=== PATIENT | male | born 1955 | race American Indian/Alaskan Native ===

== ENCOUNTER 2017-05-09 04:57 | Emergency (ER) | payer OTHER ==
[2017-05-09] MEDS ORDERED: ZOFRAN IV ONE ×2 (05:32→11:16)
[2017-05-09] MEDS ORDERED: TORADOL IV ONE (05:32)
--- NOTE | 2017-05-09 06:26 | Cat Scan Report ---
FINAL REPORT EXAM: CT ABDOMEN PELVIS WO CON HISTORY: R flank pain h/o renal stones TECHNIQUE: Routine axial imaging was obtained of the abdomen and pelvis without oral or IV contrast. Sagittal and coronal reconstructions were reviewed. The previous study of 01/21/2016 was reviewed for correlation. FINDINGS: The lung bases are clear. There is a small hiatal hernia. The liver, gallbladder, pancreas, spleen, and adrenal glands appear normal. The kidneys reveal moderate right-sided hydronephrosis secondary to a partially obstructing 5.5 mm stone in the mid right ureter. Both kidneys otherwise reveal additional nonobstructing stones measure up to 3 millimeters in diameter in the left kidney. There is perinephric stranding noted bilaterally. The bowel loops are normal in caliber and course. The appendix is not enlarged. There is no evidence of free fluid or adenopathy. In the pelvis the prostate gland is moderately enlarged indenting the floor of the bladder. The bladder otherwise is well maintained. The skeletal structures reveal extensive facet arthropathy changes in the lower lumbar spine. IMPRESSION: Moderate right-sided hydronephrosis secondary to a partially obstructing 5.5 mm stone in the mid right ureter. Additional nonobstructing stones in both kidneys with bilateral perinephric stranding. Prostatic enlargement. Normal appendix. Extensive facet arthropathy changes lower lumbar spine
--- NOTE | 2017-05-09 10:59 | Emergency Department Report ---
Chief Complaint: Abdominal Pain Stated Complaint: RT FLANK PAIN - HPI History of Present Illness: 61-year-old presents with recurrent renal colic. First episode of renal colic or 2 years ago required surgical intervention by urologist Dr. Hoffman. - Exam Vital Signs: Vital Signs 05/09/17 05/09/17 05:27 05:46 Temperature 98 F Pulse Rate 80 Respiratory 18 18 Rate Blood Pressure 134/83 O2 Sat by Pulse 96 Oximetry MSE screening note: Focused history and physical exam performed. Due to findings the following was ordered: ED Disposition for MSE Condition: Stable Referrals: JI CROCKETT MD [Primary Care Provider] - 3-5 Days
--- NOTE | 2017-05-09 11:10 | Emergency Department Report ---
ED Abdominal Pain HPI - General Chief Complaint: Abdominal Pain Stated Complaint: RT FLANK PAIN Time Seen by Provider: 05/09/17 11:01 Source: patient Mode of arrival: Ambulatory Limitations: No Limitations - History of Present Illness Severity scale (0 -10): 10 - Related Data Home Medications Medication Instructions Recorded Confirmed Last Taken Doxazosin [Cardura] 1 mg PO QDAY 12/30/12 01/26/16 01/25/16 Linagliptin [Tradjenta] 5 mg PO QAM 12/30/12 01/26/16 01/25/16 amLODIPine/VALSARTAN [Exforge 1 each PO DAILY 12/30/12 01/26/16 01/26/16 10:30 10-160 mg Tablet] l-Mefol/A-Cyst/Meb12/Algal Oil 1 each PO QDAY 12/30/12 01/26/16 01/25/16 [Cerefolin Nac Caplet] Finasteride 1 tab PO DAILY 01/21/16 01/26/16 01/25/16 [place]-3 Fatty Acids/Fish Oil [Fish 1 each PO QDAY 01/21/16 01/26/16 01/25/16 Oil] Testosterone Cypionate 400 mg IM Q4W 01/21/16 01/26/16 01/25/16 [Depo-Testosterone] Testosterone [Androgel] 40.5 mg TRANSDERMA QDAY 01/21/16 01/26/16 01/25/16 Arginine [l-Arginine] 500 mg PO QDAY 01/26/16 01/26/16 01/25/16 Allergies Allergy/AdvReac Type Severity Reaction Status Date / Time IVP DYE AdvReac Unknown Uncoded 12/15/14 09:24 ED Review of Systems ROS: Stated complaint: RT FLANK PAIN Other details as noted in HPI ED Past Medical Hx - Past Medical History Previous Medical History?: Yes Hx Hypertension: Yes (Denies chest pain or SOB.) Hx Diabetes: Yes (5 YRS) Hx GERD: Yes Hx Liver Disease: No Hx Renal Disease: (Kidney stones) Hx Seizures: No Hx Kidney Stones: Yes Hx HIV: No Additional medical history: BPH, cardiomegaly - Surgical History Additional Surgical History: kidney stones - Social History Smoking Status: Never Smoker Substance Use Type: None - Medications Home Medications: Home Medications Medication Instructions Recorded Confirmed Last Taken Type Doxazosin [Cardura] 1 mg PO QDAY 12/30/12 01/26/16 01/25/16 History Linagliptin [Tradjenta] 5 mg PO QAM 12/30/12 01/26/16 01/25/16 History amLODIPine/VALSARTAN [Exforge 1 each PO DAILY 12/30/12 01/26/16 01/26/16 10:30 History 10-160 mg Tablet] l-Mefol/A-Cyst/Meb12/Algal Oil 1 each PO QDAY 12/30/12 01/26/16 01/25/16 History [Cerefolin Nac Caplet] Finasteride 1 tab PO DAILY 01/21/16 01/26/16 01/25/16 History [place]-3 Fatty Acids/Fish Oil [Fish 1 each PO QDAY 01/21/16 01/26/16 01/25/16 History Oil] Testosterone Cypionate 400 mg IM Q4W 01/21/16 01/26/16 01/25/16 History [Depo-Testosterone] Testosterone [Androgel] 40.5 mg TRANSDERMA QDAY 01/21/16 01/26/16 01/25/16 History Arginine [l-Arginine] 500 mg PO QDAY 01/26/16 01/26/16 01/25/16 History ED Physical Exam - General Limitations: No Limitations ED Course Vital Signs 05/09/17 05/09/17 05:27 05:46 Temperature 98 F Pulse Rate 80 Respiratory 18 18 Rate Blood Pressure 134/83 O2 Sat by Pulse 96 Oximetry Critical care attestation.: If time is entered above; I have spent that time in minutes in the direct care of this critically ill patient, excluding procedure time. ED Disposition Condition: Stable Referrals: JI CROCKETT MD [Primary Care Provider] - 3-5 Days
--- NOTE | 2017-05-09 11:12 | Emergency Department Report ---
ED Abdominal Pain HPI - General Chief Complaint: Abdominal Pain Stated Complaint: RT FLANK PAIN Time Seen by Provider: 05/09/17 11:01 Source: patient, family Mode of arrival: Ambulatory Limitations: No Limitations - History of Present Illness Initial Comments: 61-year-old presents with recurrent renal colic. First episode of renal colic or 2 years ago required surgical intervention by urologist Dr. Hoffman. Patient reports that he has the urge to go but no urine. He said he is having right flank pain with nausea and vomiting since 3:30 this morning. Denies any blood in his urine. Right flank pain and abdominal pain 10 out of 10 denies any fever or chills. Pain is crampy and colicky. [id number] pain medication taken and without any relief. Patient has a history of renal insufficiency and then followed by urologist. MD Complaint: abdominal pain, flank pain -: This morning Location: LLQ, R flank Radiation: none Migration to: no migration Severity: severe Severity scale (0 -10): 10 Quality: cramping (colicky) Consistency: intermittent Improves With: nothing Worsens With: nothing Context: other (history of kidney stones) Associated Symptoms: nausea, vomiting, other (urinary urgency). denies: diarrhea, fever, chills, constipation, dysuria, hematemesis, hematochezia, melena, hematuria, anorexia, syncope Treatments Prior to Arrival: other - Related Data Home Medications Medication Instructions Recorded Confirmed Last Taken Doxazosin [Cardura] 1 mg PO QDAY 12/30/12 01/26/16 01/25/16 Linagliptin [Tradjenta] 5 mg PO QAM 12/30/12 01/26/16 01/25/16 amLODIPine/VALSARTAN [Exforge 1 each PO DAILY 12/30/12 01/26/16 01/26/16 10:30 10-160 mg Tablet] l-Mefol/A-Cyst/Meb12/Algal Oil 1 each PO QDAY 12/30/12 01/26/16 01/25/16 [Cerefolin Nac Caplet] Finasteride 1 tab PO DAILY 01/21/16 01/26/16 01/25/16 [place]-3 Fatty Acids/Fish Oil [Fish 1 each PO QDAY 01/21/16 01/26/16 01/25/16 Oil] Testosterone Cypionate 400 mg IM Q4W 01/21/16 01/26/16 01/25/16 [Depo-Testosterone] Testosterone [Androgel] 40.5 mg TRANSDERMA QDAY 01/21/16 01/26/16 01/25/16 Arginine [l-Arginine] 500 mg PO QDAY 01/26/16 01/26/16 01/25/16 Previous Rx's Medication Instructions Recorded Last Taken Type Ondansetron [Zofran Odt] 4 mg PO Q6HR PRN #15 tab.rapdis 05/09/17 Unknown Rx Oxycodone HCl/Acetaminophen 1 each PO Q6HR PRN #15 tablet 05/09/17 Unknown Rx [Percocet 7.5/325 mg] Allergies Allergy/AdvReac Type Severity Reaction Status Date / Time IVP DYE AdvReac Unknown Uncoded 12/15/14 09:24 ED Review of Systems ROS: Stated complaint: RT FLANK PAIN Other details as noted in HPI Comment: All other systems reviewed and negative Constitutional: denies: chills, fever Eyes: denies: eye pain, eye discharge, vision change ENT: denies: ear pain, throat pain Respiratory: no symptoms reported Cardiovascular: denies: chest pain, palpitations, dyspnea on exertion, edema, syncope Gastrointestinal: abdominal pain, nausea, vomiting. denies: diarrhea, constipation, hematemesis, melena, hematochezia Genitourinary: urgency. denies: dysuria, frequency, hematuria, discharge, testicular pain, testicular mass Musculoskeletal: back pain. denies: joint swelling, arthralgia Skin: denies: rash Neurological: denies: headache ED Past Medical Hx - Past Medical History Previous Medical History?: Yes Hx Hypertension: Yes (Denies chest pain or SOB.) Hx Diabetes: Yes (5 YRS) Hx GERD: Yes Hx Liver Disease: No Hx Renal Disease: (Kidney stones) Hx Seizures: No Hx Kidney Stones: Yes Hx HIV: No Additional medical history: BPH, cardiomegaly - Surgical History Past Surgical History?: Yes Additional Surgical History: kidney stones - Family History Family history: hypertension - Social History Smoking Status: Never Smoker Substance Use Type: None - Medications Home Medications: Home Medications Medication Instructions Recorded Confirmed Last Taken Type Doxazosin [Cardura] 1 mg PO QDAY 12/30/12 01/26/1616 History Linagliptin [Tradjenta] 5 mg PO QAM 12/30/12 01/26/16 01/25/16 History amLODIPine/VALSARTAN [Exforge 1 each PO DAILY 12/30/12 01/26/16 01/26/16 10:30 History 10-160 mg Tablet] l-Mefol/A-Cyst/Meb12/Algal Oil 1 each PO QDAY 12/30/12 01/26/16 01/25/16 History [Cerefolin Nac Caplet] Finasteride 1 tab PO DAILY 01/21/16 01/26/16 01/25/16 History [place]-3 Fatty Acids/Fish Oil [Fish 1 each PO QDAY 01/21/16 01/26/16 01/25/16 History Oil] Testosterone Cypionate 400 mg IM Q4W 01/21/16 01/26/16 01/25/16 History [Depo-Testosterone] Testosterone [Androgel] 40.5 mg TRANSDERMA QDAY 01/21/16 01/26/16 01/25/16 History Arginine [l-Arginine] 500 mg PO QDAY 01/26/16 01/26/16 01/25/16 History Ondansetron [Zofran Odt] 4 mg PO Q6HR PRN #15 tab.rapdis 05/09/17 Unknown Rx Oxycodone HCl/Acetaminophen 1 each PO Q6HR PRN #15 tablet 05/09/17 Unknown Rx [Percocet 7.5/325 mg] ED Physical Exam - General Limitations: No Limitations General appearance: alert, in no apparent distress - Head Head exam: Present: atraumatic, normocephalic, normal inspection - Eye Eye exam: Present: normal appearance, PERRL, EOMI. Absent: conjunctival injection, nystagmus Pupils: Present: normal accommodation - ENT ENT exam: Present: normal exam, normal orophraynx, mucous membranes moist - Neck Neck exam: Present: normal inspection, full ROM. Absent: tenderness, meningismus, lymphadenopathy, thyromegaly - Respiratory Respiratory exam: Present: normal lung sounds bilaterally. Absent: respiratory distress, chest wall tenderness, accessory muscle use - Cardiovascular Cardiovascular Exam: Present: regular rate, normal rhythm, normal heart sounds. Absent: systolic murmur, diastolic murmur - GI/Abdominal GI/Abdominal exam: Present: soft, normal bowel sounds. Absent: distended, tenderness, guarding, rebound, rigid, hyperactive bowel sounds, hypoactive bowel sounds, organomegaly, mass, bruit, pulsatile mass, hernia - Extremities Exam Extremities exam: Present: normal inspection, full ROM, normal capillary refill , other (NO CLUBBING ,cyanosis or edema.Distal pulses are extremities and no neurovascular compromise). Absent: tenderness, pedal edema, joint swelling, calf tenderness - Back Exam Back exam: Present: normal inspection, full ROM, CVA tenderness (L), other. Absent: tenderness, CVA tenderness (R), muscle spasm, paraspinal tenderness, vertebral tenderness, rash noted - Neurological Exam Neurological exam: Present: alert, oriented X3, normal gait, reflexes normal. Absent: motor sensory deficit - Psychiatric Psychiatric exam: Present: normal affect, normal mood - Skin Skin exam: Present: warm, dry, intact, normal color. Absent: rash ED Course Vital Signs 05/09/17 05/09/17 05/09/17 05:27 05:46 11:59 Temperature 98 F 98.6 F Pulse Rate 80 80 Respiratory 18 18 18 Rate Blood Pressure 134/83 Blood Pressure 141/87 [Left] O2 Sat by Pulse 96 100 Oximetry - Reevaluation(s) Reevaluation #1: 05/09/17 11:31 Patient received Toradol 30 mg IV this morning at 5:53 AM, CT scan of the abdomen show moderate hydronephrosis with partial obstruction right 5.5 mm ureter stone and bilateral 3 mm kidney stone. Patient given 4 mg morphine, 4 mg Zofran IV for pain and nausea. Orally hydrated and IV fluid normal saline started. Patient is stable at present without any vomiting. 05/09/17 11:39 Reevaluation #2: 05/09/17 12:28 Patient received additional 1 mg of Dilaudid IV . Urinalysis is stable and awaiting CBC and BMP. IV fluid infused then and pain is under control at current. Reevaluation #3: 05/09/17 13:21 Patient stable, potassium 3.[address] [facility] Yasmin sanz and okay for patient to be discharged. Patient is okay with plan. Pain is controlled and no nausea or vomiting. ED Medical Decision Making - Lab Data Result diagrams: 05/09/17 11:42 02/07/18 12:13 Lab Results 05/09/17 05/09/17 05/09/17 Range/Units 11:10 11:42 11:42 WBC 9.3 (4.5-11.0) K/mm3 RBC 5.41 H (3.65-5.03) M/mm3 Hgb 15.5 H (11.8-15.2) gm/dl Hct 45.8 H (35.5-45.6) % MCV 85 (84-94) fl MCH 29 (28-32) pg MCHC 34 (32-34) % RDW 14.1 (13.2-15.2) % Plt Count 206 (140-440) K/mm3 Lymph % (Auto) 10.6 L (13.4-35.0) % [place] % (Auto) 5.3 (0.0-7.3) % Eos % (Auto) 0.1 (0.0-4.3) % Baso % (Auto) 0.3 (0.0-1.8) % Lymph # 1.0 L (1.2-5.4) K/mm3 [place] # 0.5 (0.0-0.8) K/mm3 Eos # 0.0 (0.0-0.4) K/mm3 Baso # 0.0 (0.0-0.1) K/mm3 Seg Neutrophils % 83.7 H (40.0-70.0) % Seg Neutrophils # 7.8 H (1.8-7.7) K/mm3 Sodium TNR Potassium TNR Chloride TNR Carbon Dioxide TNR Anion Gap TNR BUN TNR Creatinine TNR Estimated GFR TNR BUN/Creatinine Ratio TNR Glucose TNR Calcium TNR Urine Color Yellow (Yellow) Urine Turbidity Clear (Clear) Urine pH 5.0 (5.0-7.0) Ur Specific [place] 1.024 (1.003-1.030) Urine Protein 30 mg/dl (Negative) mg/dL Urine Glucose (UA) 50 (Negative) mg/dL Urine Ketones Neg (Negative) mg/dL Urine Blood Lg (Negative) Urine Nitrite Neg (Negative) Urine Bilirubin Neg (Negative) Urine Urobilinogen < 2.0 (<2.0) mg/dL Ur Leukocyte Esterase Neg (Negative) Urine WBC (Auto) 11.0 H (0.0-6.0) /HPF Urine RBC (Auto) > 182.0 (0.0-6.0) /HPF U Epithel Cells (Auto) < 1.0 (0-13.0) /HPF Calcium Oxalate Crystal 3+ Urine Mucus Few /HPF Urine Yeast (Budding) Few /HPF 05/09/17 Range/Units 12:13 WBC (4.5-11.0) K/mm3 RBC (3.65-5.03) M/mm3 Hgb (11.8-15.2) gm/dl Hct (35.5-45.6) % MCV (84-94) fl MCH (28-32) pg MCHC (32-34) % RDW (13.2-15.2) % Plt Count (140-440) K/mm3 Lymph % (Auto) (13.4-35.0) % [place] % (Auto) (0.0-7.3) % Eos % (Auto) (0.0-4.3) % Baso % (Auto) (0.0-1.8) % Lymph # (1.2-5.4) K/mm3 [place] # (0.0-0.8) K/mm3 Eos # (0.0-0.4) K/mm3 Baso # (0.0-0.1) K/mm3 Seg Neutrophils % (40.0-70.0) % Seg Neutrophils # (1.8-7.7) K/mm3 Sodium 140 Potassium 3.5 L Chloride 102.9 Carbon Dioxide 23 Anion Gap 18 BUN 23 H Creatinine 1.4 Estimated GFR > 60 BUN/Creatinine Ratio 16 Glucose 141 H Calcium 8.7 Urine Color (Yellow) Urine Turbidity (Clear) Urine pH (5.0-7.0) Ur Specific [place] (1.003-1.030) Urine Protein (Negative) mg/dL Urine Glucose (UA) (Negative) mg/dL Urine Ketones (Negative) mg/dL Urine Blood (Negative) Urine Nitrite (Negative) Urine Bilirubin (Negative) Urine Urobilinogen (<2.0) mg/dL Ur Leukocyte Esterase (Negative) Urine WBC (Auto) (0.0-6.0) /HPF Urine RBC (Auto) (0.0-6.0) /HPF U Epithel Cells (Auto) (0-13.0) /HPF Calcium Oxalate Crystal Urine Mucus /HPF Urine Yeast (Budding) /HPF Urine culture pending - Radiology Data Radiology results: report reviewed CT scan of the abdomen and pelvis reveals right moderate hydronephrosis secondary to partially obstructing 5.5 mm stones in the mid right ureter. Nonobstructive stones in both kidneys with bilateral perinephric stranding. Stones are 3 mm. Normal appendix. Prostate enlargement. Extensive facet arthropathy lower lumbar area. - Medical Decision Making ED course: Patient reports flank pain and nausea vomiting without any fever or chills. Denies any blood in his urine. Patient had episode of kidney stones in the past and is being followed by urologist Dr. Hoffman. He also said that he had history of renal insufficiency. Physical findings for right hydronephrosis secondary to partially obstructed 5.5 mm stone in mid right ureter. And also nonobstructing stones in both kidneys with bilateral perinephric stranding. Prostate enlargement. Normal appendix. Lumbar spine degenerative disease. Laboratory findings with CBC showing an elevated in hemoglobin and hematocrits would suggest dehydration, chemistry with potassium of 3.5 otherwise stable and urinalysis shows large blood, white blood cell of 11 , 50 glucose and 30 ketones. Please see laboratory section for detail on labs. Patient was given IV fluid normal saline 1 L, Zofran 4 mg IV. Upon initial arrival in emergency room patient was given 30 mg of Toradol by previous shift.. He has normal renal function. Pain is better but patient requested pain pill because his pain was not completely resolved. He got Dilaudid 1 mg IV which resolved his pain. He should also given Percocet 2 tablets 5/325 mg by mouth prior to discharge. He is able to tolerate oral liquids very well. I discussed lab results and CT scan of the patient's and also need to follow up with urologist. He voices understanding. I spoke with Dr. Yasmin Michael patient urologist and gave him results of CT scan findings and lab work and he wanted patient to call to schedule an appointment to follow up in office in one day. Discharged home from emergency room with his in stable condition. Critical care attestation.: If time is entered above; I have spent that time in minutes in the direct care of this critically ill patient, excluding procedure time. ED Disposition Clinical Impression: Bilateral kidney stones, Hydronephrosis with urinary obstruction due to ureteral calculus, Left flank pain Nausea and vomiting Qualifiers: Vomiting type: unspecified Vomiting Intractability: non-intractable Qualified Code(s): R11.2 - Nausea with vomiting, unspecified Disposition: DC-01 TO HOME OR SELFCARE Is pt being admited?: No Does the pt Need Aspirin: No Condition: Stable Instructions: Kidney Stones (ED), Renal Colic (ED), Flank Pain (ED) Additional Instructions: Please increase her fluid intake to 2-3 L of water per day. Take pain medication as prescribed but please refrain from driving or operating heavy machinery while doing this. Zofran is for nausea and/or vomiting If he experiences increasing pain, nausea or vomiting and inability urinate, please return to the emergency room otherwise call Dr. Hoffman's office today to schedule an appointment for follow-up visit tomorrow Prescriptions: Ondansetron [Zofran Odt] 4 mg PO Q6HR PRN #15 tab.rapdis PRN Reason: Nausea And Vomiting Oxycodone HCl/Acetaminophen [Percocet 7.5/325 mg] 1 each PO Q6HR PRN #15 tablet PRN Reason: Pain Referrals: JI CROCKETT MD [Primary Care Provider] - 05/11/17 JESSE HOFFMAN MD [Staff Physician] - 24 Hours Forms: Accompanied Note, Work/School Release Form(ED)
[2017-05-09] MEDS ORDERED: MORPHINE IV ONE (11:16)
[2017-05-09] MEDS ORDERED: NACL 0.9% 1000 ML 1,000 ML IV ONE (11:17)
[2017-05-09 11:36] LABS: Bilirubin,Urine NEG (Negative); Blood,Urine LG (Negative); Calcium Oxalate Crystals,Urine 3+; Color,Urine Yellow (Yellow); Mucus,Urine FEW /HPF; Nitrite,Urine NEG (Negative); Urobilinogen,Urine < 2.0 mg/dL (<2.0)
[2017-05-09] MEDS ORDERED: PERCOCET 5/325 PO ONE (11:38)
[2017-05-09 11:40] LABS: RBC,Urine > 182.0 /HPF (0.0-6.0)
[2017-05-09] MEDS ORDERED: DILAUDID IV ONE (11:44)
[2017-05-09 12:00] VITALS: BP 141/87
[2017-05-09] MEDS ORDERED: FLOMAX PO ONE (12:00)
[2017-05-09 12:04] LABS: Basophils % (Auto) 0.3 % (0.0-1.8); Eosinophils % (Auto) 0.1 % (0.0-4.3); Hematocrit 45.8 % (35.5-45.6); Hemoglobin 15.5 gm/dl (11.8-15.2); Lymphocytes % (Auto) 10.6 % (13.4-35.0); Mean Corpuscular HGB Conc 34 % (32-34); Mean Corpuscular Hemoglobin 29 pg (28-32); Mean Corpuscular Volume 85 fl (84-94); Monocytes # (Auto) 0.5 K/mm3 (0.0-0.8); Monocytes % (Auto) 5.3 % (0.0-7.3); Platelet Count 206 K/mm3 (140-440); Red Blood Count 5.41 M/mm3 (3.65-5.03); Red Cell Distribution Width 14.1 % (13.2-15.2)
[2017-05-09 12:09] LABS: Blood Urea Nitrogen TNR mg/dL (9-20)
[2017-05-09 12:10] LABS: BUN/Creatinine Ratio TNR; Calcium TNR mg/dL (8.4-10.2); Hemolysis Index TNR
[2017-05-09 12:47] LABS: BUN/Creatinine Ratio 16; Blood Urea Nitrogen 23 mg/dL (9-20); Calcium 8.7 mg/dL (8.4-10.2); Hemolysis Index 4
[2017-05-09] MEDS ORDERED: K-DUR PO ONE (13:06)
== END 2017-05-09 14:01 | disposition home or self-care (01) ==
LOC: ED 04:57
DX: N13.2 Hydronephrosis with renal and ureteral calculous obstruction (principal); R11.2 Nausea with vomiting, unspecified; I10 Essential (primary) hypertension; E11.9 Type 2 diabetes mellitus without complications; K21.9 Gastro-esophageal reflux disease without esophagitis
CPT/HCPCS: 36415; 74176; 80048; 81001; 85025; 87086; 96361; 96374; 96375; 96376; 99284; J1170; J1885; J2270; J2405; J7030